=== PATIENT | male | born 1985 | race Caucasian/White ===

== ENCOUNTER 2022-08-19 01:05 | Emergency (ER) | payer OTHER ==
[2022-08-19] MEDS ORDERED: ERYTHROMYCIN O3.5 GM OS (02:51)
== END 2022-08-19 03:01 | disposition home or self-care (01) ==
LOC: ER1 01:05
DX: T15.02XA Foreign body in cornea, left eye, initial encounter (principal); K21.9 Gastro-esophageal reflux disease without esophagitis; F17.210 Nicotine dependence, cigarettes, uncomplicated; X58.XXXA Exposure to other specified factors, initial encounter
CPT/HCPCS: 90471; 90714; 99283